=== PATIENT | female | born 1980 | race Caucasian/White ===

== ENCOUNTER → 2017-12-12 08:04 | Outpatient (CLI) | payer MEDICAID, SELFPAY ==
--- NOTE | 2017-12-12 08:30 | MM_ITS ---
MM Dig screening mamm BI w/CAD CAD Screening COMPARISON: Digital mammograms 04/23/2012 and 11/02/2016 INDICATION: There is no personal or family history of breast cancer TECHNIQUE: Standard CC and MLO images were obtained. R2 CAD reviewed. FINDINGS: There is a diffusely dense and heterogenic parenchymal pattern lessening the sensitivity of mammography. There is a stable asymmetric density just deep to the nipple right breast likely secondary to the hypoechoic nodule seen on right breast ultrasound 11/02/2016. This is only definitely seen on the cc view suggesting that it could in fact be a summation shadow. Also at this does not sit at the 10:00 position as was suggested on the ultrasound report after this reason recommend patient have a follow-up ultrasound right breast for lesion marked on the film seen in the retroareolar region on the cc view. There are no suspicious microcalcifications in either breast. IMPRESSION: Dense and heterogenic parenchymal pattern with asymmetric density right breast BI-RADS Category: 0 Need Additional Imaging Evaluation RECOMMENDED FOLLOW-UP: IMM - IMMEDIATE FOLLOW-UP RECOMMENDED (A letter has been sent to the patient regarding results of the study.)
== END ==
PROVIDERS: Family Provider Pediatrics; PCP Emergency Medicine; Visit Provider Nurse Practitioner Obstetrics & Gynecology
DX: Z12.31 Encounter for screening mammogram for malignant neoplasm of breast (principal)
CPT/HCPCS: 77067

== ENCOUNTER → 2017-12-13 08:41 | Outpatient (CLI) | payer MEDICAID, SELFPAY ==
[2017-12-13 13:34] LABS: Basophils # 0.1 K/mm3 (0-0.2); Basophils % 0.8 % (0.1-2.0); Eosinophils # 0.2 K/mm3 (0.0-0.4); Eosinophils % 1.9 % (0.1-12.0); Hematocrit 48.9 % (37.0-47.0); Hemoglobin 15.8 g/dL (12.2-16.2); Lymphocytes # 2.5 K/mm3 (0.7-4.5); Lymphocytes % 25.7 K/mm3 (10-50); Mean Corpuscular HGB Conc 32.4 g/dL (31.8-35.4); Mean Corpuscular Hemoglobin 32.6 pg (27.0-31.2); Mean Corpuscular Volume 100.5 fl (81-99); Mean Platelet Volume 8.6 fl (7.4-10.4); Monocytes # 0.6 K/mm3 (0.1-1.0); Monocytes % 5.8 % (1.7-9.3); Neutrophils # 6.4 K/mm3 (1.8-7.8); Neutrophils % 65.8 % (37.0-80.0); Platelet Count 414 K/mm3 (142-424); Red Blood Count 4.87 M/mm3 (4.20-5.40); Red Cell Distribution Width 13.1 % (11.5-17.5); White Blood Count 9.7 K/mm3 (4.8-10.8)
[2017-12-13 14:36] LABS: Alanine Aminotransferase 19 U/L (12-78); Albumin Level 3.9 gm/dL (3.4-5.0); Albumin/Globulin Ratio 1.2 (1.1-1.8); Alkaline Phosphatase 114 U/L (46-116); Anion Gap 11.5 mEq/L (5-15); Aspartate Amino Transferase 19 U/L (15-37); Bilirubin,Total 0.4 mg/dL (0.2-1.0); Blood Urea Nitrogen 5 mg/dL (7-18); Calcium 9.2 mg/dL (8.5-10.1); Carbon Dioxide 28 mmol/L (21.0-32.0); Chloride 108 mmol/L (98-107); Chol/HDL Ratio 4.2 (1-3.5); Cholesterol 204 mg/dL (140-200); Creatinine,Serum 0.75 mg/dL (0.55-1.02); Estimated Glomerular Filt Rate 86 ml/min (>60); Free T4 (Free Thyroxine) 1.19 ng/dl (0.76-1.46); GFR (African American) 105 ML/MIN (>60); Globulin 3.2 gm/dl (1.3-3.2); Glucose 75 mg/dL (74-106); HDL Cholesterol 49 mg/dL (29-89); LDL Cholesterol 136 mg/dL (0-130); Potassium 4.5 mmoL/L (3.5-5.1); Sodium 143 mmol/L (136-145); Thyroid Stimulating Hormone 1.22 uIU/ml (0.358-3.740); Total Protein,Serum 7.1 gm/dL (6.4-8.2); Triglycerides 93 mg/dL (30-200); VLDL Cholesterol 19 mg/dL (0-40)
[2017-12-13 16:10] LABS: Hemoglobin A1C 5.1 % (0.0-7.0)
[2017-12-14 11:11] LABS: Hep A Ab, IgM Negative (Negative); Hepatitis B Core Antibody IgM Negative (Negative); Hepatitis B Surface Antigen Negative (Negative)
[2017-12-14 19:05] LABS: Hepatitis C Antibody <0.1 s/co ratio (0.0-0.9); Vitamin D 25 Hydroxy 8.6 ng/mL (30.0-100.0)
== END ==
PROVIDERS: Visit Provider Nurse Practitioner Family
DX: R53.83 Other fatigue (principal); R00.2 Palpitations
CPT/HCPCS: 80053; 80061; 80074; 82652; 83036; 84439; 84443; 85025

== ENCOUNTER → 2017-12-27 12:26 | Outpatient (CLI) | payer MEDICAID, SELFPAY ==
--- NOTE | 2017-12-27 14:49 | US_ITS ---
US breast RT complete ORDERING PHYSICIAN : [facility] PATIENT AGE: 37 years GENDER: Female INDICATION previous studies to follow up nodularity seen on previous ultrasound from 2017 as well as some minimal nodularity on recent mammogram. COMPARISON is made to mammogram for 08/19 and 11/02/2016 as well as April 2012. There is also Previous Ultrasound RIGHT breast from May 2017 used as comparison.. -----:-RIGHT BREAST ULTRASOUND AXILLARY SURVEY----- At 3 o'clock position.: Small 4 mm benign hypoechoic appearing area. Small unimpressive and can be followed. Most likely debris-filled clustered collection of cyst with small clear cyst remaining its posterior margin On prior 2016 ultrasound study a clear nearly 5 mm benign-appearing cyst in this likely similar 3 o'clock position was noted. Previously possibly there is been some debris collection or hemorrhage here. This can be followed. I believe follow-up in one year is adequate. But but if palpable area develops patient remained concern ultrasound survey could be performed in the interval to again reassure. . 10:00. Bilobed cystic or area. Overall spans nearly 9 mm length and comprised to just less than than 5 mm cysts adjacent to one another. Deep outer breast... Not of concern. A single larger cyst is seen here previously.. Axillary survey shows benign lymph nodes largest 2 cm length. Attention is also recommended towards the asymmetric area of density noted on recent mammogram at likely 1:00 right breast. No additional findings are seen here with ultrasound and I strongly favor that this area is merely a stable asymmetric fibroglandular feature after reviewing multiple old mammogram studies. IMPRESSION 1. Today's ultrasound demonstrates a fairly benign-appearing features. .. Semisolid or debris-filled cystic area at 3:00;.... & benign-appearing bilobed cystic area deep breast at 10:00. . A follow-up bilateral follow-up mammogram October 2018 would be adequate. Note comments in text.. (Would suggest including Bilateral Breast Ultrasound that at that follow-up as well given the dense inhomogeneous character of this younger patient's breast and confirm stable debris-filled cyst at 3:00.) 2. The area of mild asymmetry question on recent mammogram appears to stable fibroglandular feature feature after reviewing multiple studies. Again follow-up in one year adequate BI-RADS Category: 2 Benign Finding(s) RECOMMENDED FOLLOW-UP: 1YR - 1 YEAR FOLLOW-UP (A letter has been sent to the patient regarding results of the study.)
[2017-12-28 20:15] LABS: Folate 5.4 ng/mL (>3.0); Vitamin B12 288 pg/mL (232-1245)
== END ==
PROVIDERS: Family Provider Pediatrics; PCP Nurse Practitioner Family; Visit Provider Nurse Practitioner Obstetrics & Gynecology
DX: R92.8 Other abnormal and inconclusive findings on diagnostic imaging of breast (principal)
CPT/HCPCS: 36415; 76641; 82607; 82746

== ENCOUNTER → 2018-01-20 08:07 | Outpatient (CLI) | payer MEDICAID, SELFPAY | PROVIDERS: Family Provider Pediatrics; PCP Nurse Practitioner Family; Visit Provider Internal Medicine | DX: R00.2 Palpitations (principal); E78.5 Hyperlipidemia, unspecified; F41.9 Anxiety disorder, unspecified | CPT/HCPCS: 93017; 93306 ==

== ENCOUNTER → 2018-01-31 11:20 | Outpatient (CLI) | payer MEDICAID, SELFPAY ==
[2018-01-31 12:37] LABS: Ferritin 83 ng/mL (8-388)
[2018-01-31 12:50] LABS: Erythrocyte Sedimentation Rate 5 mm/hr (0-20)
== END ==
PROVIDERS: Family Provider Pediatrics; PCP Nurse Practitioner Family; Visit Provider Specialist
DX: M54.5 Low back pain (principal); M25.551 Pain in right hip; M25.552 Pain in left hip; M79.604 Pain in right leg; M79.605 Pain in left leg
CPT/HCPCS: 36415; 82728; 85651

== ENCOUNTER → 2018-02-07 17:14 | Outpatient (CLI) | payer MEDICAID, SELFPAY ==
--- NOTE | 2018-02-07 17:17 | XR_ITS ---
XR lumbar spine 2-3V Ordering Physician: Zainab Benitez MD Patient Age: 37 years: Female HISTORY: ITS.REASON: pain TECHNIQUE: AP lateral lumbar spine with lateral lumbosacral spot view. 3 images COMPARISON : None FINDINGS Lumbar vertebral bodies are intact. Disc spaces are intact throughout lumbar spine. Pedicles transverse processes SI joints intact. Mild roto-levocurvature at the upper lumbar spine. Estimate Roughly 15 degrees dextro curvature upper lumbar spine [id number] L4 on this limited 2 view lumbar spine study. ( It is not a true standing scoliosis exam and there may somewhat positional component accentuating of this curvature contributing).. Again postsurgical changes of pelvis with likely BTL clip having migrated from right adnexa towards left lower quadrant. Typically scarring and restriction of the right tube has occurred from prior procedure and this would not be of significance but she may want to discussed with her her ANIMAL GENETICIST to reassure such IMPRESSION... The lumbar vertebral bodies and disc spaces intact Mild dextro scoliosis upper lumbar spine suggested on this 2 view study Incidental observation: Suspect tubal ligation clip has migrated from right adnexa towards LLQ
--- NOTE | 2018-02-07 17:17 | XR_ITS ---
XR hip BI w PEL1V Ordering Physician: Zainab Benitez MD Patient Age: 37 years: Female HISTORY: ITS.REASON: painpelvic and hip pain TECHNIQUE: Frog-leg view right and left hip along with AP pelvis radiograph COMPARISON :No previous FINDINGS ...... . RIGHT HIP appears intact. Femoral head and neck intact LEFT HIP appears intact. Only question borderline narrowing superior left joint space.. . AP pelvis. Osseous pelvis is intact. Minor sclerotic changes about the pubic symphysis likely reflecting multigravida pelvis. Sacrum and SI joints unremarkable.Spina bifida occulta S1 noted, insignificant anatomical variation. Postsurgical changes at the pelvic basin. I would note which is likely a tubal ligation clip has migrated from the right adnexa towards LLQ. IMPRESSION: ... Right and left hip intact. Only question borderline narrowing superior left hip joint space Osseous pelvis intact.
== END ==
PROVIDERS: PCP Nurse Practitioner Family; Visit Provider Specialist
DX: M54.5 Low back pain (principal); M25.551 Pain in right hip; M25.552 Pain in left hip; M79.604 Pain in right leg; M79.605 Pain in left leg
CPT/HCPCS: 72100; 73521

== ENCOUNTER → 2018-03-24 12:14 | Outpatient (POV) | payer MEDICAID, SELFPAY | PROVIDERS: Family Provider Pediatrics; PCP Nurse Practitioner Family; Visit Provider Specialist | DX: M54.9 Dorsalgia, unspecified (principal); M79.604 Pain in right leg; M79.605 Pain in left leg; M41.9 Scoliosis, unspecified | CPT/HCPCS: 95886; 95909 ==

== ENCOUNTER → 2018-12-29 12:58 | Outpatient (CLI) | payer MEDICAID, SELFPAY ==
--- NOTE | 2018-12-29 13:02 | MM_ITS ---
MM Dig mamm BI DX w/CAD, US breast LT complete, US breast RT complete INDICATION: Bilateral palpable nodules ORDERING PHYSICIAN: Alissa Grubbs APRN PATIENT AGE: 38 years COMPARISON: 12/12/2017, 11/02/2016, 04/23/2012 TECHNIQUE: Standard images are performed along with bilateral breast ultrasound FINDINGS: There is dense fibroglandular tissue bilaterally decrease the sensitivity of mammography. Right breast: A marker is placed in the lower outer aspect of the right breast were palpable nodule is reported. There is a 7 mm nodular opacity noted in the outer aspect of the right breast anteriorly less apparent on the spot compression view and not identified in the orthogonal plane. Asymmetric density is present in the superior aspect of the right breast similar to the previous exams. No malignant appearing mass or malignant appearing microcalcification is evident. Right breast ultrasound: COMPARISON is made to 12/27/2017. 5 mm cyst at 10:00. Areas of asymmetric echogenicity are noted at 3:00 near the nipple and may be related to fibroglandular tissue appearing to elongate on sagittal imaging. Overall not significant change. No suspicious nodules apparent. Small nodes are present in the axilla Left breast: COMPARISON is made to 11/02/2016. Asymmetric density is present in the medial aspect of left breast. This does appear to compress out as fibroglandular tissue. No malignant appearing mass or malignant appearing microcalcifications evident. Left breast ultrasound: Heterogeneous echogenic fibroglandular tissue. There are 2 cysts in the outer aspect of left breast at 3:00 measuring 5 and 6 mm. No suspicious nodules evident. IMPRESSION: No convincing evidence of malignancy. Bilateral asymmetric densities noted as described above probably benign. Probably benign ultrasound findings. Suggest 6 month mammographic and sonographic follow-up BI-RADS Category: 3 Probably Benign Finding Short Term Follow-up RECOMMENDED FOLLOW-UP: 6M - 6 MONTH FOLLOW-UP (A letter has been to the patient regarding results of the study.)
== END ==
PROVIDERS: Visit Provider Nurse Practitioner Family
DX: N60.01 Solitary cyst of right breast (principal); N60.02 Solitary cyst of left breast
CPT/HCPCS: 76641; 77066

== ENCOUNTER → 2019-08-10 14:22 | Outpatient (CLI) | payer MEDICAID, SELFPAY ==
--- NOTE | 2019-08-10 | US_ITS ---
PROCEDURE: MM DIG MAMM BI DX W/CAD CLINICAL INDICATION: 6 month f/u Six-month follow-up abnormal mammogram COMPARISON: DMDBAV DIG MAMM-DX JESSICA W/AVWS W/CAD from 11/02/2016 [facility] MM Dig screening mamm BI w/CAD from 12/12/2017 BREASTRT US breast RT complete from 12/29/2018 BREASTLT US breast LT complete from 12/29/2018 DX[facility] MM Dig mamm BI DX w/CAD from 12/29/2018 US BREAST LT COMPLETE from 08/10/2019 US BREAST RT COMPLETE from 08/10/2019 TECHNIQUE: Standard images performed along with spot compression views and bilateral breast ultrasound FINDINGS: Dense fibroglandular tissue which decreases sensitivity of mammography. No malignant appearing mass or malignant-appearing microcalcification.. Scattered benign-appearing nodules left axillary region unchanged. Right breast ultrasound: 7 x 3 mm complicated cyst 3. Previously this showed increased echoes which today show and anechoic appearance with some internal septations consistent with a cyst. 5 mm cyst at 10. Left breast ultrasound: No cystic or solid lesions evident. Previously noted hypoechoic nodules at 3 o'clock not demonstrated on today's exam IMPRESSION: Benign findings. No evidence of malignancy BI-RAD Category: 2 Benign Finding(s) FOLLOW-UP: 1YR 1 Year Follow-up (A letter has been sent to the patient regarding results of the study.) Dictated by: Nicolás Chacko MD 08/15/2019 11:02 Electronically signed by Nicolás Chacko MD in [place] 08/15/2019 11:02
== END ==
PROVIDERS: Visit Provider Nurse Practitioner Obstetrics & Gynecology
DX: R92.8 Other abnormal and inconclusive findings on diagnostic imaging of breast (principal); N63.24 Unspecified lump in the left breast, lower inner quadrant; N63.12 Unspecified lump in the right breast, upper inner quadrant; N63.11 Unspecified lump in the right breast, upper outer quadrant; N63.13 Unspecified lump in the right breast, lower outer quadrant
CPT/HCPCS: 76641; 77066

== ENCOUNTER → 2020-08-22 09:42 | Outpatient (CLI) | payer MEDICAID, SELFPAY ==
--- NOTE | 2020-08-22 09:47 | US_ITS ---
PROCEDURE: US BREAST RT COMPLETE CLINICAL INDICATION: 1 yr f/u COMPARISON: US US BREAST RT COMPLETE from 08/10/2019 FINDINGS: There is a diffusely increased echogenicity of the breast parenchyma noted previously and compatible with the mammogram findings. There is a small benign-appearing cystic lesion at the 2 to 3 o'clock position near the nipple measuring 0.6 by 0.5 x 0.2 cm stable and unchanged from previous exam. There is a small hypoechoic cystic lesion at the 10 o'clock position outer breast measuring 0.5 by 0.6 x 0.4 cm and this is stable as well. There are couple of normal appearing nodes in the axilla. IMPRESSION: Stable benign-appearing cystic lesions and no additional follow-up is indicated Dictated by: Dr. Ludin Wen MD 08/24/2020 10:06 Dr. Ludin Wen MD in [place] 08/24/2020 10:06
--- NOTE | 2020-08-22 09:47 | MM_ITS ---
PROCEDURE: MM DIG SCREENING MAMM BI W/CAD Digital Breast Tomosynthesis Included CLINICAL INDICATION: screening xmg There is no personal or family history of breast cancer. COMPARISON: MG [facility] MM Dig screening mamm BI w/CAD from 12/12/2017 MG DX[facility] MM Dig mamm BI DX w/CAD from 12/29/2018 MG MM DIG MAMM BI DX W/CAD from 08/10/2019 TECHNIQUE: Standard CC and MLO images and 3D Tomosynthesis was obtained. R2 CAD reviewed. FINDINGS: There is a diffusely dense and heterogenic parenchymal pattern as noted previously. Jack images are most helpful this type of dense breast parenchyma. There is no suspicious lesion and no suspicious microcalcifications. IMPRESSION: Stable dense parenchymal pattern with no suspicious lesions seen BI-RAD Category: 1 Negative FOLLOW-UP: 1YR 1 Year Follow-up (A letter has been sent to the patient regarding results of the study.) Dictated by: Dr. Ludin Wen MD 08/24/2020 09:58 Dr. Ludin Wen MD in [place] 08/24/2020 09:58
--- NOTE | 2020-08-22 09:47 | US_ITS ---
PROCEDURE: US BREAST LT COMPLETE CLINICAL INDICATION: 1 yr f/u COMPARISON: US US BREAST RT COMPLETE from 08/10/2019 FINDINGS: There is diffusely heterogenic echogenicity of the breast parenchyma. There is a small benign-appearing hypoechoic cystic lesion at the 2 o'clock position near the nipple measuring 0.5 x 0.6 x 0.3 cm and this was not definitely seen on the previous exam. There is another small hypoechoic cystic lesion at the 3 o'clock position near the nipple measuring 0.4 x 0.5 x 0.2 cm and this is stable and unchanged from the previous exam. There are couple normal appearing nodes in the axilla. IMPRESSION: Tiny benign-appearing lesions as described no additional follow-up indicated Dictated by: Dr. Ludin Wen MD 08/24/2020 10:03 Dr. Ludin Wen MD in [place] 08/24/2020 10:03
== END ==
PROVIDERS: PCP Family Medicine; Visit Provider Nurse Practitioner Obstetrics & Gynecology
DX: Z12.31 Encounter for screening mammogram for malignant neoplasm of breast (principal); N60.12 Diffuse cystic mastopathy of left breast; N60.11 Diffuse cystic mastopathy of right breast
CPT/HCPCS: 76641; 77063; 77067

== ENCOUNTER 2021-03-23 16:30 | Emergency (ER) | payer MEDICAID, SELFPAY ==
[2021-03-23 17:22] VITALS: BP 155/83; PULSE 94; RESP 21; TEMP 37; O2SAT 98; BMI 21.5
--- NOTE | 2021-03-23 17:40 | HMH.EDUTC ---
[facility] [place] Clinical Impression: Otitis media Qualifiers: Otitis media type: suppurative Chronicity: acute Laterality: bilateral Recurrence: non-recurrent Spontaneous tympanic membrane rupture: without spontaneous rupture Qualified Code(s): H66.003 - Acute suppurative otitis media without spontaneous rupture of ear drum, bilateral Disposition: Home, Self-Care Condition on Discharge: Good Instructions: Middle Ear Infection Additional Instructions: Drink plenty of fluids. Take tylenol for pain or fever. Take the medications as directed. Follow up with your regular doctor. GO TO THE ER FOR ANY WORSENING SYMPTOMS Prescriptions: Amoxicillin [Amoxicillin 500mg Tab] 500 mg PO TID 10 Days #30 tab Transmission Status: Received by [id number] predniSONE [Prednisone 20mg Tab] 20 mg PO BID 4 Days #8 tab Transmission Status: Received by [id number] Referrals: Wally Siddiqui [Primary Care Provider] - Forms: Work/School Release Time of Disposition: 17:46 Medical Decision Making - Medical Records Medical records reviewed: No: I reviewed the patient's medical records. - Alpesh Inquiry Pt receiving controlled substance: No Vital Signs: 03/23/21 17:22 03/23/21 17:54 Temperature 98.6 F 98.5 F Temperature Source Oral Pulse Rate 88 Pulse Rate [Left] 94 H Respiratory Rate 21 21 Blood Pressure 149/87 H Blood Pressure [Right Arm] 155/83 H Blood Pressure Mean [Right Arm] 107 02 Sat by Pulse Oximetry 98 [facility] [place] - General Stated complaint: possible ear infection Time Seen by Provider: 03/23/21 17:30 Mode of Arrival: Ambulatory Source of Information: Patient Limitations: No Limitations Description of Symptoms (Recalled from Triage Doc. by RN): pt c/o dizziness, SIMON and ear aches. HEENT Symptoms (Recalled from RN notes): Yes (SIMON and ear aches) Resp Symptoms (Recalled from RN notes): No Skin Symptoms (Recalled from RN notes): No MS Symptoms (Recalled from RN notes): No Functional Status (Recalled from RN notes): dizziness - History of Present Illness Provider Complaint: She c/o bilateral ear pain for the past 2 days. She denies any chest congestion, cough, body aches and other symptoms. - Related Data Previous Rx's Medication Instructions Recorded cholecalciferol (vitamin D3) 125 5,000 unit PO DAILY #30 cap 12/16/17 mcg (5,000 unit) capsule ergocalciferol (vitamin D2) 1,250 50,000 unit PO QWEEK #4 cap 12/16/17 mcg (50,000 unit) capsule Azithromycin [Z-Prabhakar 250mg Tab*] 250 mg PO UD DOSE PK #6 tab 05/03/18 Benzonatate [Tessalon Perle 100mg 100 mg PO TID PRN #30 cap 05/03/18 Cap] predniSONE [Prednisone 10mg Tab 10 mg PO UD DOSE PK #21 pack 05/03/18 Dose-Pack] Amoxicillin [Amoxicillin 500mg Tab] 500 mg PO TID 10 Days #30 tab 03/23/21 predniSONE [Prednisone 20mg 20 mg PO BID 4 Days #8 tab 03/23/21 Tab] Allergies Allergy/AdvReac Type Severity Reaction Status Date / Time No Known Allergies Allergy Verified 03/23/21 17:25 - Worker's Comp Is this a Worker's Comp case?: No [facility] History - Hepatitis A Screen Drug use history?: No High risk sexual behaviors?: No History of sexually transmitted infection?: No Currently employed?: No Childcare worker?: No Do you have indoor plumbing?: Yes Do you have electricity?: Yes Attestation statement:: This patient has been screened for Hepatitis A risk factors. I have reviewed the patient's past medical history: Yes Medical History: Reports:: Anxiety, Palpitations, Ulcer Denies:: Cancer, Diabetes Mellitus Type 1, Diabetes Mellitus Type 2, MRSA Other Medical History: Reports: Other Comment: back pain Laterality Cases: Bilateral: Tonsillectomy Other Surgeries: Yes: Appendectomy, , Hernia Repair, Hysterectomy-Partial, Tubal Ligation, Other Amputation: No Fractures: No Comment: LEAP PROCEDURE, CYST OFF THYROID - Social History Smoking Status: Current every day smoker Tobacco Type: cigar
[2021-03-23 17:54] VITALS: BP 149/87; PULSE 88; RESP 21; TEMP 36.9
== END 2021-03-23 18:12 | disposition home or self-care (01) ==
PROVIDERS: Emergency Provider Nurse Practitioner Family; PCP Family Medicine
DX: H66.003 Acute suppurative otitis media without spontaneous rupture of ear drum, bilateral (principal); F41.9 Anxiety disorder, unspecified
CPT/HCPCS: 99202; G0463

== ENCOUNTER 2024-03-26 10:39 | Outpatient (CLI) | payer MEDICAID, SELFPAY ==
--- NOTE | 2024-03-26 10:40 | MM_ITS ---
PROCEDURE INFORMATION: Exam: MG Bilateral Screening 3D Mammography Exam date and time: 03/26/2024 10:39 AM Age: 43 years old Clinical indication: Screening examination TECHNIQUE: Imaging protocol: Bilateral Screening tomosynthesis and 2D mammography including computer-aided detection (CAD) when performed. COMPARISON: 1. MG MM DIG SCREENING MAMM BI W/CAD 08/22/2020 9:47 AM 2. MG MM DIG MAMM BI DX W/CAD 08/10/2019 2:36 PM FINDINGS: MAMMOGRAPHY: Breast composition: The breasts are heterogeneously dense, which may obscure small masses. Mass: Questionable 0.9 cm mass in the middle third of the right central breast only well seen on the craniocaudal projection Architectural distortion: None. Calcifications: No suspicious calcifications. Asymmetric density: None. Skin thickening: None. Axillary adenopathy: None. IMPRESSION: Patient to be recalled for a spot compression view of the right breast in the craniocaudal projection, a full 90 degree lateral view of the right breast, and possible right breast ultrasound for further evaluation of a questionable right breast mass. ASSESSMENT: BI-RADS Category 0: Incomplete- Need Additional Imaging Evaluation and/or Prior Mammograms for Comparison.
== END 2024-03-26 23:59 | disposition home or self-care (01) ==
LOC: RAD 10:40
PROVIDERS: PCP Nurse Practitioner Family; Visit Provider Nurse Practitioner Obstetrics & Gynecology
DX: Z12.31 Encounter for screening mammogram for malignant neoplasm of breast (principal)
CPT/HCPCS: 77063; 77067

== ENCOUNTER 2024-04-08 14:00 | Outpatient (CLI) | payer MEDICAID, SELFPAY ==
--- NOTE | 2024-04-08 14:05 | MM_ITS ---
PROCEDURE INFORMATION: Exam: MG Right Diagnostic Breast Tomosynthesis Exam date and time: 04/08/2024 2:07 PM Age: 43 years old Clinical indication: Patient recalled on the basis of a screening mammogram for further evaluation; Right breast; mass TECHNIQUE: Imaging protocol: Right Diagnostic tomosynthesis and 2D mammography including computer-aided detection (CAD) when performed. Unilateral or bilateral exam. COMPARISON: 1. MG MM DIG SCREENING MAMM BI W/CAD 03/26/2024 10:39 AM 2. MG MM DIG SCREENING MAMM BI W/CAD 08/22/2020 9:47 AM FINDINGS: MAMMOGRAPHY: Breast composition: The breast is heterogeneouly dense, which may obscure small masses (based on the most recent screening mammogram report). Breast mammogram findings: Digital diagnostic spot compression views of the right breast and 90 degree lateral view of the right breast demonstrate questionable persistent 0.9 cm mass in the middle third of the right approximate 12 o'clock axis IMPRESSION: Patient return for targeted right breast ultrasound for further evaluation questionable right breast mass ASSESSMENT: BI-RADS Category 0: Incomplete- Need Additional Imaging Evaluation and/or Prior Mammograms for Comparison.
== END 2024-04-08 23:59 | disposition home or self-care (01) ==
LOC: RAD 14:00
PROVIDERS: PCP Nurse Practitioner Family; Visit Provider Nurse Practitioner Obstetrics & Gynecology
DX: N63.10 Unspecified lump in the right breast, unspecified quadrant (principal)
CPT/HCPCS: 77061; 77065; G0279

== ENCOUNTER 2024-04-17 10:01 | Outpatient (CLI) | payer MEDICAID, SELFPAY ==
--- NOTE | 2024-04-17 10:11 | US_ITS ---
PROCEDURE INFORMATION: Exam: US Right Breast, Complete Exam date and time: 04/17/2024 10:20 AM Age: 43 years old Clinical indication: Patient recalled for further evaluation of a questionable right breast mass TECHNIQUE: Imaging protocol: Complete ultrasound of all four quadrants of the right breast and the retroareolar regions, including ultrasound of the axilla when performed. COMPARISON: Mammogram dated 04/08/2024 FINDINGS: ULTRASOUND: Breast ultrasound findings: Sonographic images of the right breast including the retroareolar region, all 4 quadrants and the axilla do not demonstrate any solid masses. Few scattered subcentimeter cysts are noted in the right breast including 2 adjacent cysts with a combined dimension of 0.7 cm in the 10 o'clock axis 4 cm from the nipple possibly correlating with the questionable persistent subcentimeter mass on mammography. No architectural distortion or acoustical shadowing. No skin thickening or axillary adenopathy. IMPRESSION: Questionable persistent subcentimeter nodular tissue in the right upper breast on mammography may correlate with benign cystic change on sonography. A precautionary six-month follow-up diagnostic right mammogram is recommended to ensure stability of the pattern identified. ASSESSMENT: BI-RADS Category 3: Probably benign.
[2024-04-17 10:42] LABS: Basophils # 0.1 K/mm3 (0-0.2); Basophils % 1.3 % (0.1-2.0); Eosinophils # 0.1 K/mm3 (0.0-0.4); Eosinophils % 1.7 % (0.1-12.0); Hematocrit 46.3 % (37.0-47.0); Hemoglobin 14.5 g/dL (12.2-16.2); Lymphocytes % 27.3 % (10-50); Mean Corpuscular HGB Conc 31.4 g/dL (31.8-35.4); Mean Corpuscular Volume 98.9 fl (81-99); Mean Platelet Volume 7.9 fl (7.4-10.4); Monocytes # 0.4 K/mm3 (0.1-1.0); Monocytes % 5.1 % (1.7-9.3); Neutrophils # 4.7 K/mm3 (1.8-7.8); Neutrophils % 64.6 % (37.0-80.0); Platelet Count 459 K/mm3 (142-424); Red Blood Count 4.68 M/mm3 (4.20-5.40); Red Cell Distribution Width 13.5 % (11.5-17.5); White Blood Count 7.2 K/mm3 (4.8-10.8)
[2024-04-17 11:05] LABS: Alanine Aminotransferase 15 U/L (12-78); Albumin Level 4.3 g/dl (3.5-5.0); Albumin/Globulin Ratio 1.5 (1.1-1.8); Alkaline Phosphatase 85 U/L (38-126); Anion Gap 10.3 mEq/L (5-15); Aspartate Amino Transferase 27 U/L (14-36); Bilirubin,Total 0.6 mg/dl (0.2-1.3); Blood Urea Nitrogen 11 mg/dl (7-17); Calcium 9.4 mg/dl (8.4-10.2); Carbon Dioxide 29 mmol/L (22.0-30.0); Chloride 103 mmol/L (98-107); Estimated Glomerular Filt Rate 91 ml/min (>60); GFR (African American) 110 ML/MIN (>60); Globulin 2.9 g/dL (1.3-3.2); Glucose 87 mg/dl (74-100); Potassium 4.3 mmoL/L (3.5-5.1); Sodium 138 mmol/L (136-145); Total Protein,Serum 7.2 g/dl (6.3-8.2)
[2024-04-18 05:40] LABS: HCV Ab Non Reactive (Non Reactive); Hepatitis B Surface Antigen Negative (Negative)
[2024-04-18 08:56] LABS: HIV (1&2) Antibody Rapid NONREACTIVE (NONREACTIVE)
[2024-04-18 11:07] LABS: Rapid Plasma Reagin Ab Titer Non Reactive titer (NonRea<1:1)
== END 2024-04-17 23:59 | disposition home or self-care (01) ==
LOC: RAD 10:01
PROVIDERS: Visit Provider Nurse Practitioner Obstetrics & Gynecology
DX: R92.8 Other abnormal and inconclusive findings on diagnostic imaging of breast (principal); Z72.51 High risk heterosexual behavior
CPT/HCPCS: 36415; 76641; 80053; 85025; 86593; 87340

== ENCOUNTER 2025-07-02 13:49 | Outpatient (CLI) | payer BC, SELFPAY ==
--- OUTSIDE RECORDS SUMMARY | 2025-07-02 13:52 | XMS_ITS | Clinical Summary ---
Author Organization [facility] Address [address] [place], [place] [id number] Phone Care Team Providers Care Chemistry Intern Name Role Phone Unavailable Primary Care Provider Unavailabl e Allergies No known active allergies Medications No known medications Active Problems No known active problems Surgical History Surgery Date Site/Laterality Comments TONSILLECTOMY LEEP DILATION AND CURETTAGE OF UTERUS SECTION TUBAL LIGATION APPENDECTOMY Medical History Medical History Date Comments Ulcer Social History Tobacco Use Types Packs/Day Years Used Date Smoking Tobacco: Every Day Cigarettes 2 30.8 Started: 09/02/1994 Smokeless Tobacco: Never Alcohol Use Standard Drinks/Week Comments No 0 (1 standard drink = 0.6 oz pur e alcohol) PHQ-2 Answer Date Recorded PHQ-2 Total Score 0 09/12/2020 Comments No Sex and Gender Information Value Date Recorded Sex Assigned at Not on file Legal Sex Female 5:18 PM EDT Gender Identity Not on file Sexual Orientation Not on file Last Filed Vital Signs Vital Sign Reading Time Taken Comments Blood Pressure 122/80 09/12/2020 10:48 AM EST Pulse 94 10/05/2010 2:11 PM EST Temperature 36.1 C (97 F) 09/12/2020 10:48 AM EST Respiratory Rate 16 04/28/2016 5:50 PM EDT Oxygen Saturation 100% 04/28/2016 5:50 PM EDT Inhaled Oxygen Concentration - - Weight 58.1 kg (128 lb) 09/12/2020 10:48 AM EST Height 157.5 cm (5' 2 ) 09/12/2020 10:48 AM EST Body Mass Index 23.41 09/12/2020 10:48 AM EST Plan of Treatment Health Maintenance Due Date Last Done Comments Annual Wellness Exam 1982 DTaP/TDaP/Td (1 - Tdap) 1998 Hepatitis B Vaccine (1 of 3 - 19+ 3-dose series) 1998 Cervical Cancer Screening 2000 Pap Smear 2000 HPV/Pap Cotest 2009 Breast Cancer Screening 2019 Cologuard 2024 Colon Cancer Screening 2024 Colonoscopy 2024 FIT 2024 Sigmoidoscopy 2024 Virtual Colonography 2024 COVID-19 Vaccine (1 - 2024-2 6 season) 2025 Influenza Vaccine (#1) 2025 Meningococcal B Vaccine Aged Out No l onger eligible based on patient's age to complete this topic Pneumococcal Vaccine 0-49 Aged Out No longer eligible based on patient's age to complete this topic Goals Goal Patient Goal Type Associated Problems Recent Progress Patient-Stated? Author Maintain a healthy diet, exercise regularly and maintain an ideal body weight General No Blanca Robbins RMA Stay Tobacco Free Lifestyle No Blanca Robbins RMA Insurance [employer] [address] [employer] [address] [place], [place] [id number] * Guarantor: Ophelia Hardin Account Type Relation to Patient Date of Phone Billing Address [place] Personal Family Self
--- NOTE | 2025-07-02 13:53 | MM_ITS ---
PROCEDURE INFORMATION: Exam: MG Bilateral Diagnostic Breast Tomosynthesis Exam date and time: 07/02/2025 2:03 PM Age: 44 years old Clinical indication: Short-term radiographic followup; Right breast; Additional info: 6mth f/u, RT breast screening lt TECHNIQUE: Imaging protocol: Bilateral Diagnostic tomosynthesis and 2D mammography including computer-aided detection (CAD) when performed. Unilateral or bilateral exam. COMPARISON: 1. MG MM DIG MAMM DX UNILAT RT CAD 04/08/2024 2:07 PM 2. MG MM DIG SCREENING MAMM BI W/CAD 03/26/2024 10:39 AM FINDINGS: MAMMOGRAPHY: Breast composition: The breasts are heterogeneously dense, which may obscure small masses. Breast mammogram findings: No stellate mass, architectural distortion, or suspicious microcalcifications to suggest malignancy. No skin thickening or axillary adenopathy. No persistent abnormality in the right breast. IMPRESSION: 1. No mammographic evidence of malignancy. 2. Annual bilateral mammographic screening is recommended unless otherwise clinically indicated. ASSESSMENT: BI-RADS Category 1: Negative.
== END 2025-07-02 23:59 | disposition home or self-care (01) ==
LOC: RAD 13:50
PROVIDERS: PCP Nurse Practitioner Family; Visit Provider Nurse Practitioner Family
DX: R92.331 Mammographic heterogeneous density, right breast
CPT/HCPCS: 77062; 77066; G0279